=== PATIENT | female | born 2000 | race African-American/Black ===

== ENCOUNTER 2025-02-17 10:41 | Day surgery (SDC) | payer OTHER ==
[2025-02-17 11:11] VITALS: BMI 39.0
== END 2025-02-17 14:01 | disposition home or self-care (01) ==
LOC: CSHLD/OP 10:41
PROVIDERS: ATTEND Family Medicine
DX: O47.1 False labor at or after 37 completed weeks of gestation (principal); O99.013 Anemia complicating pregnancy, third trimester; O99.213 Obesity complicating pregnancy, third trimester; Z3A.37 37 weeks gestation of pregnancy; Z67.10 Type A blood, Rh positive; Z90.89 Acquired absence of other organs; Z88.0 Allergy status to penicillin
CPT/HCPCS: 99283

== ENCOUNTER 2025-02-27 12:09 | Inpatient (IN) | payer OTHER ==
[2025-02-27 12:25] VITALS: BMI 39.9
[2025-02-27] MEDS ORDERED: hydrALAZINE 20 MG/ML VIAL SLOW IVP PRN (12:32)
[2025-02-27 14:00] LABS: ALT (SGPT) 71 U/L (Less than 34); AST (SGOT) 37 U/L (11-34); Albumin 2.7 g/dL (3.1-4.5); Alkaline Phosphatase 228 U/L (40-110); Anion Gap 14 mmol/L (10-20); BUN (Urea Nitrogen) 9 mg/dL (7.0-18.7); Bilirubin, Total 0.3 mg/dL (0.3-1.2); Calc. Creatinine Clearance 225 mL/min (70-130); Calcium 9.3 mg/dL (7.8-10.44); Carbon Dioxide 22 mmol/L (22-29); Chloride 105 mmol/L (98-107); Globulin 3.9 g/dL (2.4-3.5); Glucose 88 mg/dL (70-105); Potassium 4.3 mmol/L (3.5-5.1); Sodium 137 mmol/L (136-145)
[2025-02-27] MEDS ORDERED: Ondansetron PF 4 MG/2 ML Vial IVP PRN (14:53)
[2025-02-27] MEDS ORDERED: Methylergonovine 0.2 MG/ML VIAL IM PRN (14:53)
[2025-02-27] MEDS ORDERED: Diphenoxylate HCl/Atropine Tablet PO PRN ×2 (14:53)
[2025-02-27] MEDS ORDERED: Tranexamic Acid 1,000 MG/10 ML VIAL IVP PRN (14:53)
[2025-02-27] MEDS ORDERED: Carboprost 250 MCG/ML AMP IM PRN (14:53)
[2025-02-27] MEDS ORDERED: Oxytocin 30 units/NS 500 ML 500 ML IV SCH (15:00)
[2025-02-27 15:08] LABS: Hematocrit 31.9 % (34.9-44.5); Hemoglobin 9.9 g/dL (12.0-15.5); Mean Corpuscular Hemoglobin 23.8 pg (27.0-33.0); Mean Corpuscular Volume 76.7 fL (81.6-98.3); Platelet Count 366 10x3/uL (150-450); Red Blood Cell (RBC) Count 4.16 10x6/uL (3.90-5.03); White Blood Cell (WBC) Count 8.49 10x3/uL (3.5-10.5)
[2025-02-27 15:40] LABS: Syphilis Antibody Index 0.04 S/CO (<1.00 Non-Reactive)
[2025-02-27 15:52] LABS: Hep B Surf Ag - L&D Non-Reactive S/CO (NonReactive)
[2025-02-27] MEDS ORDERED: Bupivacaine/Epinephrine 0.25% 30 ML VIAL ONE (17:00)
[2025-02-27] MEDS ORDERED: Lidocaine 2% MPF 10 ML AMP (For Epidural Use) ONE (17:00)
[2025-02-28] MEDS: fentaNYL/Ropivacaine Epidural 100 ML ONE (02:45)
[2025-02-28] MEDS ORDERED: diphenhydrAMINE 50 MG/ML VIAL IVP PRN (03:58)
[2025-02-28] MEDS ORDERED: Ondansetron PF 4 MG/2 ML Vial IVP PRN ×4 (03:58→14:47)
[2025-02-28] MEDS ORDERED: Communication Order-Pharmacy FS SCH ×2 (04:00→15:00)
[2025-02-28] MEDS ORDERED: fentaNYL 2 mcg/Ropivacaine 0.2% Epidural 100 ML CADD EPIDURAL SCH (04:00)
[2025-02-28] MEDS: Oxytocin 30 units/NS 500 ML 500 ML IV SCH (09:40)
[2025-02-28] MEDS: Clindamycin/D5W 900 MG in Premix 1 BAG IVPB SCH (09:45)
[2025-02-28] MEDS ORDERED: Bicitra 30 ML UDCUP PO PRN (12:44)
[2025-02-28] MEDS ORDERED: Famotidine/PF 20 mg/2ml Vial SLOW IVP PRN (12:44)
[2025-02-28] MEDS ORDERED: Azithromycin 500 MG in Sodium Chloride 0.9% 250 ML 250 ML IVPB SCH (12:45)
[2025-02-28 14:01] LABS: Analyzer IN Cardio CS NICU; pH (Cord, venous) 7.229 (7.250-7.350)
[2025-02-28 14:09] LABS: Analyzer IN Cardio CS NICU
[2025-02-28] MEDS ORDERED: Simethicone Chewable 80 MG TAB PO PRN (14:23)
[2025-02-28] MEDS ORDERED: Methylergonovine 0.2 MG/ML VIAL IM PRN (14:23)
[2025-02-28] MEDS ORDERED: hydrALAZINE 20 MG/ML VIAL SLOW IVP PRN (14:23)
[2025-02-28] MEDS ORDERED: Oxytocin 30 units/NS 500 ML 500 ML IV SCH (14:30)
[2025-02-28] MEDS ORDERED: Meperidine HCl/PF 25 MG (1 mL) VIAL SLOW IVP PRN (14:47)
[2025-02-28 16:14] LABS: #Basophils 0.04 10x3/uL (0.0-0.2); #Eosinophils 0.03 10x3/uL (0.0-0.5); #Monocytes 0.84 10x3/uL (0.0-1.1); #Neutrophils 12.49 10x3/uL (1.5-8.4); %Basophils 0.3 % (0.0-2.0); %Eosinophils 0.2 % (0.0-6.0); %Lymphocytes 8.4 % (18.0-47.0); %Monocytes 5.7 % (0.0-10.0); %Neutrophils 85.1 % (40.0-75.0); Hematocrit 33.7 % (34.9-44.5); Hemoglobin 10.6 g/dL (12.0-15.5); Mean Corpuscular Hemoglobin 23.7 pg (27.0-33.0); Mean Corpuscular Volume 75.4 fL (81.6-98.3); Platelet Count 335 10x3/uL (150-450); Red Blood Cell (RBC) Count 4.47 10x6/uL (3.90-5.03); White Blood Cell (WBC) Count 14.68 10x3/uL (3.5-10.5)
[2025-02-28 16:32] LABS: ALT (SGPT) 63 U/L (Less than 34); AST (SGOT) 47 U/L (11-34); Albumin 2.7 g/dL (3.1-4.5); Alkaline Phosphatase 214 U/L (40-110); Anion Gap 17 mmol/L (10-20); BUN (Urea Nitrogen) 7 mg/dL (7.0-18.7); Bilirubin, Total 0.5 mg/dL (0.3-1.2); Calc. Creatinine Clearance 239 mL/min (70-130); Calcium 9.2 mg/dL (7.8-10.44); Carbon Dioxide 17 mmol/L (22-29); Chloride 109 mmol/L (98-107); Globulin 4.2 g/dL (2.4-3.5); Glucose 87 mg/dL (70-105); Potassium 4.3 mmol/L (3.5-5.1); Sodium 139 mmol/L (136-145)
[2025-02-28] MEDS: Ketorolac Tromethamine 30 MG (1 mL) VIAL IVP SCH (17:31)
[2025-02-28] MEDS: diphenhydrAMINE 50 MG/ML VIAL IVP PRN (17:32)
[2025-02-28] MEDS: HYDROmorphone 0.5 MG/0.5 ML SYRINGE SLOW IVP PRN (19:29)
[2025-02-28] MEDS: Oxytocin 10 UNITS/ML VIAL ONE (20:32)
[2025-02-28] MEDS: Tranexamic Acid 1,000 MG/10 ML VIAL ONE (20:32)
[2025-02-28] MEDS: PHENYLEPHRINE-NS 100 MCG/ML 10 ML SYRINGE ONE ×2 (20:32)
[2025-02-28 20:41] LABS: INR-International Normal Ratio 1.0; PTT 26.2 sec (22.0-33.0); Prothrombin Time 10.5 sec (9.5-12.1)
[2025-03-01] MEDS: Ketorolac Tromethamine 30 MG (1 mL) VIAL IVP PRN (00:32)
[2025-03-01] MEDS: Ferrous Sulfate 325 MG TAB PO SCH (00:36)
[2025-03-01 06:21] LABS: Hematocrit 28.2 % (34.9-44.5); Hemoglobin 9.0 g/dL (12.0-15.5); Mean Corpuscular Hemoglobin 24.5 pg (27.0-33.0); Mean Corpuscular Volume 76.8 fL (81.6-98.3); Platelet Count 257 10x3/uL (150-450); Red Blood Cell (RBC) Count 3.67 10x6/uL (3.90-5.03); White Blood Cell (WBC) Count 10.86 10x3/uL (3.5-10.5)
[2025-03-01 12:59] LABS: Hematocrit 28.9 % (34.9-44.5); Hemoglobin 9.3 g/dL (12.0-15.5); Mean Corpuscular Hemoglobin 25.0 pg (27.0-33.0); Mean Corpuscular Volume 77.7 fL (81.6-98.3); Platelet Count 258 10x3/uL (150-450); Red Blood Cell (RBC) Count 3.72 10x6/uL (3.90-5.03); White Blood Cell (WBC) Count 10.09 10x3/uL (3.5-10.5)
[2025-03-01] MEDS: HYDROcodone/Acetaminophen 5/325 mg Tablet PO PRN (16:25)
[2025-03-01] MEDS: Acetaminophen 325 MG TAB PO PRN (17:55)
[2025-03-01] MEDS: Ibuprofen 800 MG TAB PO SCH (21:42)
[2025-03-02 05:35] LABS: Hematocrit 25.5 % (34.9-44.5); Hemoglobin 8.3 g/dL (12.0-15.5)
[2025-03-02 11:15] VITALS: BP 115/55; TEMP 97.7
[2025-03-02] MEDS: Sodium Ferric Gluconate 250 MG in Sodium Chloride 0.9% 250 ML 250 ML IVPB SCH (11:42)
== END 2025-03-02 17:45 | disposition home or self-care (01) | DRG 787 ==
LOC: CSHLD/OP 12:09 → CSHLD 14:57 → CSHPP 02-28 19:50
PROVIDERS: ADMIT Family Medicine; ATTEND Family Medicine
PROC: 10D00Z1 Extraction of Products of Conception, Low, Open Approach (ICD-10-PCS; principal; 2025-02-27)
PROC: 4A1HXCZ Monitoring of Products of Conception, Cardiac Rate, External Approach (ICD-10-PCS; 2025-02-27)
PROC: 30233N1 Transfusion of Nonautologous Red Blood Cells into Peripheral Vein, Percutaneous Approach (ICD-10-PCS; 2025-02-28)
DX: O76 Abnormality in fetal heart rate and rhythm complicating labor and delivery (principal); O26.643 Intrahepatic cholestasis of pregnancy, third trimester; O99.824 Streptococcus B carrier state complicating childbirth; K76.89 Other specified diseases of liver; O99.214 Obesity complicating childbirth; Z37.0 Single live birth; Z3A.38 38 weeks gestation of pregnancy; Z79.82 Long term (current) use of aspirin; Z79.899 Other long term (current) drug therapy; Z88.0 Allergy status to penicillin
CPT/HCPCS: 36415; 36430; 51702; 80053; 82239; 82728; 82805; 83605; 85014; 85018; 85025; 85027; 85610; 85730; 86780; 86850; 86900; 86901; 87340; J1171; J1200; J1885; J2274; J2310; J2590; J2916; J3490; J7050; P9016; Q0177